=== PATIENT | female | born 2000 | race Two or more races ===

== ENCOUNTER 2025-09-07 09:34 | Emergency (ER) | payer OTHER ==
[~2025-09-07] VITALS: Ht 172.7 cm; Wt 49.9 kg
[2025-09-07] MEDS ORDERED: DEXAMETHASONE SODIUM PHOSPHATE 4 MG/ML VIAL IM STA (11:15)
[2025-09-07] MEDS ORDERED: KETOROLAC TROMETHAMINE 30 MG VIAL IM STA (11:15)
[2025-09-07] MEDS ORDERED: ORPHENADRINE CITRATE 100 MG TABLET PO ONE (11:15)
[2025-09-07] MEDS ORDERED: DEXAMETHASONE SODIUM PHOSPHATE 4 MG/ML VIAL ONE (11:48)
[2025-09-07] MEDS ORDERED: KETOROLAC TROMETHAMINE 30 MG VIAL ONE (11:48)
[2025-09-07] MEDS ORDERED: NORFLEX100MG PO (13:15)
[2025-09-07] MEDS ORDERED: NAPROXEN500 MG PO (13:15)
== END 2025-09-07 14:08 | disposition home or self-care (01) ==
LOC: ER 09:34
DX: M54.59 Other low back pain (principal); M25.511 Pain in right shoulder
CPT/HCPCS: 36415; 72070; 73030; 99283; J1100; J1885